=== PATIENT | female | born 1995 | race Caucasian/White ===

== ENCOUNTER 2020-03-09 01:24 | Emergency (ER) | payer BC ==
[~2020-03-09] VITALS: Ht 167.6 cm; Wt 61.2 kg
[2020-03-09 01:24] VITALS: BP 130/70
--- NOTE | 2020-03-09 01:30 | NUR ---
PT BIBSELF C/O INTERMITTENT SOB X5 DAYS. PT STATES "I FEEL LIKE I CANT CATCH MY BREATH". PT O2 SAT 100% ROOM AIR. PT AAOX4. RESPIRATIONS EVEN AND UNLABORED. SKIN WARM AND INTACT. NO ACUTE DISTRESS NOTED AT THIS TIME. PT PLACED ON MONITOR, WILL CONTINUE TO MONITOR
[2020-03-09] MEDS ORDERED: LORAZEPAM 1 MG TABLET ONE (01:36)
[2020-03-09] MEDS: LORAZEPAM 1 MG TABLET PO ONE (01:40)
--- NOTE | 2020-03-09 02:12 | NUR ---
Patient discharged to home in stable condition. Written and verbal after care instructions given. Patient verbalizes understanding of instruction. advice pt not to drive or operate any machinery due pt was given ativan. pt verbalize understanding.
== END 2020-03-09 02:15 | disposition home or self-care (01) ==
LOC: ER 01:29
DX: F41.9 Anxiety disorder, unspecified (principal)
CPT/HCPCS: 71045-TC

== ENCOUNTER 2020-03-15 23:34 | Emergency (ER) | payer BC ==
[~2020-03-15] VITALS: Ht 167.6 cm; Wt 61.2 kg
[2020-03-15 23:50] VITALS: BP 111/81
--- NOTE | 2020-03-16 00:01 | NUR ---
PT CAME TO THE ED C/O SOB. PER PT SHE WAS GIVEN A PRESCRIPTION FOR ATIVAN, PROGESTERONE, AND FISH OIL AND THIS DIDN'T HELP HER. PT AAOX4, RESPIRATIONS EVEN AND UNLABORED ON RA W/ NAD NOTED. PT CONNECTED TO THE MONITOR AND POX
--- NOTE | 2020-03-16 00:18 | NUR ---
Patient discharged to home in stable condition. Written and verbal after care instructions given. Patient verbalizes understanding of instruction.
== END 2020-03-16 00:21 | disposition home or self-care (01) ==
LOC: ER 23:35
DX: F41.9 Anxiety disorder, unspecified (principal)